=== PATIENT | female | born 1950 | race African-American/Black ===

== ENCOUNTER 2016-07-01 17:26 | Inpatient (IN) ==
[2016-07-01] MEDS ORDERED: FUROSEMIDE 100 MG/10 ML VIAL IV STA (18:47)
[2016-07-01] MEDS ORDERED: methylPREDNISolone SOD SUC 125 MG/2 ML VIAL IV STA (18:47)
--- NOTE | 2016-07-01 18:47 | Emergency Department Note ---
Lyle Dey Brooke, am scribing for, and in the presence of, Julio C Shirley MD 18 :16. Fern Dey Charles R, MD, personally performed the services described in this documentation, ascribed by Maryse Alvarenga in my presence, and it is both accurate and complete [id number] . Arrival - Arrival Chief Complaint: Shortness of Breath Stated Complaint: SOB ED Nursing Triage Note: c/o SOB that started Friday. was seen at [facility] this am and states that Sats were low Mode of Arrival: Ambulatory Limitations: No Limitations Source: Patient, RN Notes Reviewed Time Seen by Provider: 07/01/16 18:05 - History of Present Illness HPI Narrative: Patient is a 66 year old female who presents to the ED with c/o SOB that started on Friday. Patient went to see a Nurse Practitioner around 1300 today and says she was concerned about her oxygen being low so she was told to come to the ED. Patient says the SOB is worse when laying flat and she says she feels like she is smothering. Patient had two breathing treatments prior to coming to the ED. Patient says she has never experienced SOB, like this, in the past. She also complains of having a cough and sore throat but denies any chest pain or fever. Patient has PMHx of HTN, dyslipidemia, and IDDM. She says Dr. Batista, in [place], told her that she has a 50% blocked artery. She does not have a history of smoking. Patient says she does take Dermadex but has not had any today. Onset (ago): day(s) (4) Allergies/Adverse Reactions: Allergies Allergy/AdvReac Type Severity Reaction Status Date / Time meloxicam [From Mobic] Allergy Unknown/Unable Verified 07/01/16 17:50 to obtain aspirin AdvReac Gastrointestinal Verified 07/01/16 17:50 Upset Home Medications: Home Medications Medication Instructions Recorded Confirmed Type Gabapentin 600 mg PO QPM 07/01/16 07/01/16 History Insulin Aspart [NovoLOG FlexPen] See Protocol SUBCUT QOTHER DAY 07/01/16 History Insulin Detemir [Levemir FlexPen] 50 unit SUBCUT BEDTIME 07/01/16 07/01/16 History Insulin Detemir [Levemir FlexPen] 70 unit SUBCUT QAM 07/01/16 07/01/16 History Isosorbide Mononitrate [Imdur] 30 mg PO DAILY 07/01/16 07/01/16 History Losartan Potassium 100 mg PO DAILY 07/01/16 07/01/16 History Metoprolol Tartrate 100 mg PO DAILY 07/01/16 07/01/16 History Torsemide Tab [Demadex Tab] 20 mg PO QOTHER DAY PRN 07/01/16 07/01/16 History Review of System - Review of System 12 point system: reviewed and no additional remarkable complaints except as stated - Review of System Constitutional: Absent: fever Head/Ears/Nose/Throat: Present: sore throat Respiratory: Present: cough, respiratory distress (SOB) Cardiovascular: Absent: chest pain Skin: Absent: rash Medical,Surgical,& Family Hx - Medical History Cardio: History of: Hypertension Endocrine: History of: Diabetes Mellitus (IDDM), Dyslipidemia - Social History Smoking Status: Never smoker Frequency of Alcohol Use: None Type of Drug Use: None Exam Vital Signs: Vital Signs Temperature 97.8 F 07/01/16 18:23 Pulse Rate 80 07/01/16 19:19 Respiratory Rate 19 07/01/16 19:19 Blood Pressure 110/60 07/01/16 19:03 O2 Sat by Pulse Oximetry 99 07/01/16 19:19 - General General appearance: alert, in distress (respiratory) - Head Head exam: Present: atraumatic, normocephalic - Eye Eye exam: Present: normal appearance, PERRL, EOMI - ENT ENT exam: Present: normal exam - Neck Neck exam: Present: normal inspection - Chest Chest inspection: Present: normal inspection, symmetric chest wall rise - Respiratory Respiratory exam: Present: rales (lower lung brock), wheezes (Upper lung brock ), other (Audible wheezing. Decreased breath sounds. ) - Cardiovascular Cardiovascular exam: Present: normal rhythm, tachycardia, normal heart sounds - Abdominal Exam Abdominal exam: Present: soft. Absent: distention, tenderness - Extremities Exam Extremities exam: Present: pedal edema (+2 bilaterally) - Back Exam Back exam: Present: normal inspection - Neurological Exam Neurological exam: Present: alert, oriented X3 - Psychiatric Psychiatric exam: Present: normal affect, normal mood - Skin Skin exam: Present: warm, dry, intact, normal color Course - Consultations Consultation #1: Hospitalist will admit patient Time: 19:47 Results - Labs CBC & BMP: 07/01/16 18:19 07/01/16 18:19 Lab Results: I have reviewed the patients labs Labs: Laboratory Tests 07/01/16 18:19 Hgb 10.3 L Hct 32.7 L MCV 79.8 L MCH 25 L MCHC 31.5 L MPV 12.7 H Laboratory Tests 07/01/16 18:19 Potassium 3.2 L Chloride 96 L BUN 36 H Creatinine 2.10 H Glucose 113 H Total Protein 8.4 H Globulin 5.0 H Albumin/Globulin Ratio 0.6 L Laboratory Tests 07/01/16 18:19 B-Natriuretic Peptide 20 - Diagnostic Findings Procedure: Chest x-ray: report reviewed by me (COPD with chronic scarring. Progressive atelectasis/infiltration/edema at the lung bases with small left pleural effusion.) Disposition Clinical Impression: Bronchitis, Pleural effusion, Renal insufficiency, Acute dyspnea, Bronchospasm Case discussed with: patient, patient's family Disposition: Still a Patient Condition: Stable Time of Disposition: 19:46
[2016-07-01 18:54] LABS: Basophils % 0.2 % (0.0-0.8); Eosinophils # 0.2 10*3/uL (0.0-0.87); Eosinophils % 2.6 % (0.00-10.9); Hematocrit 32.7 VOL% (35.7-47.0); Hemoglobin 10.3 GM/DL (12.0-16.0); Immature Granulocytes % 0.1 %; Immature Granulocytes Absolute 0.01 #; Lymphocytes # 2.6 10*3/uL (1.4-4.0); Lymphocytes % 29.4 % (21.3-54.2); Mean Corpuscular HGB Conc 31.5 GM/DL (32-36); Mean Corpuscular Hemoglobin 25 PG (27-34); Mean Corpuscular Volume 79.8 FL (87-102); Mean Platelet Volume 12.7 FL (9.6-12.0); Monocytes # 0.6 10*3/uL (0.11-0.8); Monocytes % 6.5 % (1.7-12.7); Neutrophils # 5.5 10*3/uL (1.4-7.4); Neutrophils % 61.2 % (38.7-73.9); Platelet Count 223 T/CUMM (130-400); Red Cell Distribution Width 14.9 % (9.3-17.3)
[2016-07-01] MEDS ORDERED: ONDANSETRON 4 MG/2 ML VIAL ONE ×2 (19:00→21:09)
[2016-07-01] MEDS ORDERED: MORPHINE 2 MG/1 ML SYRINGE ONE (19:00)
[2016-07-01] MEDS ORDERED: FUROSEMIDE 40 MG/4 ML VIAL ONE (19:00)
[2016-07-01] MEDS ORDERED: ALBUTEROL 2.5 MG/3 ML NEB RESP TX SCH (19:00)
[2016-07-01] MEDS ORDERED: methylPREDNISolone SOD SUC 125 MG/2 ML VIAL ONE (19:01)
[2016-07-01] MEDS ORDERED: FUROSEMIDE 20 MG/2 ML VIAL ONE (19:01)
[2016-07-01 19:02] LABS: D-Dimer 1.3 MG/L FEU; INR 1.1; PT Patient Result 11.2 SECS
[2016-07-01] MEDS: MORPHINE 2 MG/1 ML SYRINGE IV STA ×2 (19:04→20:29)
[2016-07-01] MEDS: ONDANSETRON 4 MG/2 ML VIAL IV STA ×2 (19:04→20:29)
[2016-07-01 19:06] LABS: Alanine Aminotransferase 18 U/L (13-56); Albumin 3.4 G/DL (3.4-5.0); Alkaline Phosphatase 100 U/L (45-117); Aspartate Amino Transferase 29 U/L (0-37); Bilirubin,Total < 0.39 MG/DL (0.2-1.0); Blood Urea Nitrogen 36 MG/DL (7-18); Glucose 113 MG/DL (74-106); Magnesium 1.9 MG/DL (1.8-2.4); Osmolality,Calculated 281.8 MOS/KG (273-304); Potassium 3.2 MMOL/L (3.5-5.1); Sodium 137 MMOL/L (136-145); Total Protein 8.4 G/DL (6.4-8.3); Troponin I Only < 0.015 NG/ML (0.00-0.045)
--- NOTE | 2016-07-01 19:12 | XRay Report ---
Portable chest Date:[07/01/2016] Clinical history: Shortness of breath Comparison: 07/01/2016 Technique: Portable AP sitting chest Findings: The heart is borderline in size. The lungs are chronic scarring. Progressive parenchymal findings at the lung bases. Persistent increased density at the left lung base. Degenerative changes are noted. Impression: COPD with chronic scarring. Progressive atelectasis/infiltration/edema at the lung bases with small left pleural effusion. PROCEDURE INTERPRETED AT [facility] DEPARTMENT OF RADIOLOGY Final Report Signed by: Dr. Radha Villegas
[2016-07-01] MEDS ORDERED: SODIUM CHLORIDE 0.9% 500 ML IV STA (19:18)
[2016-07-01] MEDS ORDERED: LEVOFLOXACIN INJ 750 MG in PREMIX 1 EACH IV STA (20:04)
--- NOTE | 2016-07-01 20:12 | Hospitalist History & Physical ---
Assessment and Plan - Time spent with patient Time spent with patient: Greater than 30 minutes (1) Community acquired pneumonia Status: Acute Assessment and plan: Patient be cultured and placed on empiric IV antibiotics, along with oxygen therapy and nebulizer therapy. She has associated wheezing/bronchospasm therefore I will give her IV magnesium also. We'll reevaluate and see how she responds before we add any corticosteroids intravenously. Current Visit: Yes (2) Hypertension Status: Chronic Assessment and plan: Patient has chronic essential hypertension which is well controlled. We'll continue her current medical regimen however we will consider holding her ARB since her creatinine is elevated and we are unclear as to duration of her renal insufficiency. Current Visit: Yes Qualifiers: Hypertension type: essential hypertension Qualified Code(s): I10 - Essential (primary) hypertension (3) Diabetes mellitus Status: Chronic Assessment and plan: We'll continue her current medical regimen as well as Accu-Cheks with sliding scale insulin. Current Visit: Yes Qualifiers: Diabetes mellitus type: type 2 (4) Anemia Status: Chronic Assessment and plan: Patient has an anemia which is hemodynamically stable and no evidence of blood loss. We'll defer evaluation of this time to an outpatient setting. Current Visit: Yes (5) Hypokalemia Status: Acute Assessment and plan: Supplement her potassium tonight and follow-up levels in the a.m. Current Visit: Yes (6) Renal insufficiency Status: Acute Assessment and plan: She has renal insufficiency of unknown duration. We'll attempt to obtain old records, hold her ARB at this time, avoid any further nephrotoxic insults, and follow-up renal function in the a.m. Current Visit: Yes History of Present Illness Chief complaint: short of breath, cough History of present illness: Ms. Chester is a 66 year old female who states that for the past 4-5 days she developed a cough productive of yellow-green phlegm with associated subjective fevers and increasing shortness of breath over the weekend. She did have some sharp chest discomfort associated only with the cough. She made it to the weekend but went to see her primary care provider, Saray Schwartz NP, today and was referred to our emergency department for further evaluation and care. Mrs. Chester denies any nausea, vomiting, diarrhea, constipation, melena, hematochezia , hematemesis, abdominal pain, seizure, syncope, focal motor weakness or paresthesias. She denies any history of COPD or asthma. She states that she has high blood pressure and diabetes mellitus. 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 Home Medications Medication Instructions Recorded Confirmed Type Gabapentin 600 mg PO QPM 07/01/16 07/01/16 History Insulin Aspart [NovoLOG FlexPen] See Protocol SUBCUT QOTHER DAY 07/01/16 History Insulin Detemir [Levemir FlexPen] 50 unit SUBCUT BEDTIME 07/01/16 07/01/16 History Insulin Detemir [Levemir FlexPen] 70 unit SUBCUT QAM 07/01/16 07/01/16 History Isosorbide Mononitrate [Imdur] 30 mg PO DAILY 07/01/16 07/01/16 History Losartan Potassium 100 mg PO DAILY 07/01/16 07/01/16 History Metoprolol Tartrate 100 mg PO DAILY 07/01/16 07/01/16 History Torsemide Tab [Demadex Tab] 20 mg PO QOTHER DAY PRN 07/01/16 07/01/16 History Allergies Allergy/AdvReac Type Severity Reaction Status Date / Time meloxicam [From Mobic] Allergy Unknown/Unable Verified 07/01/16 17:50 to obtain aspirin AdvReac Gastrointestinal Verified 07/01/16 17:50 Upset Medical,Surgical,& Family Hx - Medical History Cardio: History of: Hypertension Endocrine: History of: Diabetes Mellitus (IDDM), Dyslipidemia - Surgical History Reproductive Surgeries: Surgical HX of;: Hysterectomy - Family History Family History: Reports;: Family Heart Disease, Additional Family History ( father of cirrhosis of the liver) - Social History Smoking Status: Never smoker Frequency of Alcohol Use: None Type of Drug Use: None Functional capacity: independent ambulation 12 point system: reviewed and no additional remarkable complaints except as stated Exam - Constitutional Vitals: Period Temp Pulse Resp BP Sys/Lepe Pulse Ox Last 24 Hr 97.8 F-97.8 F 80-100 19-24 110-145/59-78 92-99 General appearance: mild distress - Head Head exam: Present: normocephalic, atraumatic - Eye Eye exam: Present: EOMI Pupils: Present: HEATHER - ENT ENT exam: Present: normal oropharynx - Neck Neck exam: Absent: lymphadenopathy, meningismus, tenderness, thyromegaly - Respiratory Respiratory exam: Present: rales (she has rales in the bases bilaterally), wheezes (scattered end-expiratory wheezes bilaterally). Absent: accessory muscle use, chest wall tenderness - Cardiovascular Cardiovascular exam: Present: regular rate and rhythm. Absent: gallop, JVD, systolic murmur - GI/Abdominal GI/Abdominal exam: Present: normal bowel sounds, soft. Absent: distended, mass , tenderness, rebound - Extremities Exam Extremities exam: Absent: calf tenderness, edema - Back Exam Back exam: Present: normal inspection - Neurological Exam Neurological exam: Present: alert, oriented X3, CN II-XII intact. Absent: motor sensory deficit - Psychiatric Psychiatric exam: Present: normal affect, normal mood. Absent: agitated, anxious - Skin Skin exam: Present: warm, dry. Absent: erythema, rash Results - Labs CBC & BMP: 07/01/16 18:19 07/01/16 18:19 Lab Results: I have reviewed the past 24 hour labs - Diagnostic Findings Procedure: Chest x-ray: report reviewed by me
[2016-07-01] MEDS ORDERED: LEVOFLOXACIN INJ 150 ML IV ONE (20:13)
[2016-07-01] MEDS ORDERED: POTASSIUM CHLORIDE 20 MEQ TABLET PO STA (20:15)
[2016-07-01] MEDS: MAGNESIUM SULF IV SCH ×4 (20:15→23:43)
[2016-07-01] MEDS: SODIUM CHLORIDE 0.9% IV SCH ×4 (20:15→23:43)
[2016-07-01] MEDS ORDERED: POTASSIUM CHLORIDE 20 MEQ TABLET PO ONE (20:30)
[2016-07-01] MEDS ORDERED: ONDANSETRON 4 MG/2 ML VIAL IV ONE (21:09)
[2016-07-01] MEDS ORDERED: ACETAMINOPHEN 325 MG TABLET PO PRN (21:30)
[2016-07-01] MEDS ORDERED: MORPHINE 2 MG/1 ML SYRINGE IV PRN (21:30)
[2016-07-01] MEDS ORDERED: TORSEMIDE 20 MG TABLET PO PRN (21:30)
[2016-07-01] MEDS ORDERED: GLUCAGON 1 MG VIAL IM PRN (21:30)
[2016-07-01] MEDS ORDERED: ALBUTEROL 2.5 MG/3 ML NEB RESP TX PRN (21:30)
[2016-07-01] MEDS ORDERED: DEXTROSE 50% 25 GM/50 ML VIAL IV PRN (21:30)
[2016-07-01] MEDS ORDERED: hydrALAZINE 20 MG/1 ML VIAL IV PRN (21:30)
[2016-07-01] MEDS ORDERED: ONDANSETRON 4 MG/2 ML VIAL IV PRN (21:30)
[2016-07-01] MEDS: ENOXAPARIN 30 MG/0.3 ML SYRINGE SUBCUT SCH (23:47)
[2016-07-01] MEDS: GABAPENTIN 300 MG CAPSULE PO SCH (23:47)
[2016-07-01] MEDS: INSULIN GLARGINE 100 UNIT/ML SUBCUT SCH (23:53)
[2016-07-01] MEDS: INSULIN LISPRO 100 UNIT/ML SUBCUT SCH (23:54)
[2016-07-02] MEDS: ALBUTEROL 2.5 MG/3 ML NEB RESP TX SCH ×4 (00:08→20:04)
[2016-07-02] MEDS: MAGNESIUM SULF IV SCH ×2 (00:43→01:37)
[2016-07-02] MEDS: SODIUM CHLORIDE 0.9% IV SCH ×2 (00:43→01:37)
[2016-07-02 05:56] LABS: Basophils % 0.1 % (0.0-0.8); Hematocrit 29.9 VOL% (35.7-47.0); Hemoglobin 9.3 GM/DL (12.0-16.0); Immature Granulocytes % 0.2 %; Immature Granulocytes Absolute 0.02 #; Lymphocytes # 0.8 10*3/uL (1.4-4.0); Lymphocytes % 10.1 % (21.3-54.2); Mean Corpuscular HGB Conc 31.1 GM/DL (32-36); Mean Corpuscular Hemoglobin 25 PG (27-34); Mean Corpuscular Volume 79.7 FL (87-102); Mean Platelet Volume 12.5 FL (9.6-12.0); Monocytes % 0.5 % (1.7-12.7); Neutrophils # 7.3 10*3/uL (1.4-7.4); Neutrophils % 89.1 % (38.7-73.9); Platelet Count 192 T/CUMM (130-400); Red Blood Count 3.75 MC/CUMM (3.8-5.5); White Blood Count 8.2 T/CUMM (4-12)
[2016-07-02 06:30] LABS: Calcium 8.7 MG/DL (8.5-10.1); Osmolality,Calculated 293.1 MOS/KG (273-304); Potassium 3.6 MMOL/L (3.5-5.1)
[2016-07-02] MEDS ORDERED: METOPROLOL TARTRATE 100 MG TABLET PO SCH (09:00)
--- NOTE | 2016-07-02 09:10 | Hospitalist Progress Note ---
Assessment and Plan (1) Obstructive sleep apnea Status: Chronic Assessment and plan: On active treatment for 6 months Current Visit: Yes (2) Acute dyspnea Status: Acute Assessment and plan: Unclear whether is chronic lung disease with viral URI or element of pneumonitis Current Visit: Yes (3) Diabetes mellitus Status: Chronic Current Visit: Yes Qualifiers: Diabetes mellitus type: type 2 Hospitalist: Subjective Interval history: 66 yo female diabetes, hypertension on active treatment for LAINE for about 6 months, presents with dyspnea and cough. Had essentially negative CCA done at the end of last year in [place]. Feels better this morning. Some pre-renal changes with diuresis yesterday. CXR poor quality and looks like basal hypoventilation with chronic fibrosis. Exam - Constitutional Vitals: Period Temp Pulse Resp BP Sys/Lepe Pulse Ox Last 24 Hr 97.7 F-98 F 80-106 20-26 106-156/60-75 95-99 General appearance: over weight - Respiratory Respiratory exam: Present: wheezes. 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 Absent: organomegaly, tenderness - Extremities Exam Extremities exam: Absent: edema - Neurological Exam Neurological exam: Present: alert, oriented X3 Results - Labs CBC & BMP: 07/02/16 05:28 07/02/16 05:28 Quality Measures - Stroke Symptom Onset Unknown: No
[2016-07-02] MEDS: INSULIN LISPRO 100 UNIT/ML SUBCUT SCH ×4 (10:15→22:40)
[2016-07-02] MEDS: INSULIN GLARGINE 100 UNIT/ML SUBCUT SCH ×2 (10:15→22:36)
[2016-07-02] MEDS: ISOSORBIDE MONONITRATE 30 MG TABLET PO SCH (10:16)
[2016-07-02] MEDS: GABAPENTIN 300 MG CAPSULE PO SCH (22:36)
[2016-07-02] MEDS: ENOXAPARIN 30 MG/0.3 ML SYRINGE SUBCUT SCH (22:41)
[2016-07-03] MEDS: ALBUTEROL 2.5 MG/3 ML NEB RESP TX SCH ×4 (01:22→19:57)
[2016-07-03 06:56] LABS: Calcium 8.8 MG/DL (8.5-10.1); Osmolality,Calculated 294.3 MOS/KG (273-304); Potassium 3.3 MMOL/L (3.5-5.1)
--- NOTE | 2016-07-03 07:25 | Hospitalist Progress Note ---
Assessment and Plan (1) Obstructive sleep apnea Status: Chronic Assessment and plan: On active treatment for 6 months Current Visit: Yes (2) Acute dyspnea Status: Acute Assessment and plan: Unclear whether is chronic lung disease with viral URI or element of pneumonitis Current Visit: Yes (3) Diabetes mellitus Status: Chronic Current Visit: Yes Qualifiers: Diabetes mellitus type: type 2 Hospitalist: Subjective Interval history: 66 yo female admitted with dyspnea and bronchospasm. URI symptoms with recent introduction of therapy for LAINE. She has progressed well but had recurrence of rapid regular atrial rhythm which appears asymptomatic. He does not recall any mention of tachycardia on prior evaluations. CBG has improved and pre-renal changes resolving. Exam - Constitutional Vitals: Period Temp Pulse Resp BP Sys/Lepe Pulse Ox Last 24 Hr 97.1 F-97.7 F 80-103 18-20 103-130/50-70 90-100 General appearance: over weight - Respiratory Respiratory exam: Present: clear to auscultation bilaterally. Absent: rales, rhonchi, wheezes - Cardiovascular Cardiovascular exam: Present: regular rate and rhythm - Extremities Exam Extremities exam: Absent: edema - Neurological Exam Neurological exam: Present: alert, oriented X3 Results - Labs CBC & BMP: 07/02/16 05:28 07/03/16 05:13 - Impressions Monitor shows rapid regular supraventricular tachycardia last PM Quality Measures - Stroke Symptom Onset Unknown: No
--- NOTE | 2016-07-03 07:59 | EKG Report ---
Stationary ECG Study [facility] Test Date: 07/03/2016 7:58:45 AM Pat Name: LEDY MUÑOZ Department: Room: 228 Gender: F Family Services Manager: : 1950 Requested by: Coy Barrios Order Number: [id number] Reading MD: MYRON SMITH Intervals [place] Rate: 84 P: 61 MI: 152 QRS: 66 QRSD: 137 T: 51 QT: 438 QTc: 480 Interpretive Statements SINUS RHYTHM INDETERMINATE AXIS RIGHT BUNDLE BRANCH BLOCK Electronically Signed On 07-03-16 12:54:21 PASTE MAKER by MYRON SMITH [email or web address]
[2016-07-03] MEDS: INSULIN LISPRO 100 UNIT/ML SUBCUT SCH ×4 (08:54→22:10)
[2016-07-03] MEDS: POTASSIUM CHLORIDE 20 MEQ TABLET PO SCH ×3 (08:57→22:07)
[2016-07-03] MEDS ORDERED: METOPROLOL TARTRATE 100 MG TABLET PO SCH (09:00)
[2016-07-03] MEDS ORDERED: ASPIRIN EC 81 MG TABLET PO SCH (09:00)
--- NOTE | 2016-07-03 09:23 | Electrophysiology Consultation ---
History of Present Illness - Data of Consult Patient: new to practice Consult date: 07/03/16 Requesting Physician: Vince Coyle - Consult Narrative Reason for consult: PAT History of present illness: Ms. Chester is a 66 year old BF, followed by dr. Batista in [place]. She has a history of COPD, hypertension, morbid obesity, type 2 diabetes mellitus, CAD, HLP, LAINE on CPAP, CKD. She was admitted with worsening shortness of breath, orthopnea. She noticed palpitations approximately a year ago, more when she is walking. They usually last for several minutes, sometimes shorter. These happen multiple times a day. She also had some intermittent chest discomfort with this. She underwent cardiac catheterization by Dr. Batista, in [place],and was diagnosed with CAD. Medical management was pursued and she was started on Imdur. This did not decrease the amount of her palpitations. She denies any syncope, she has a mild chronic lower extremity swelling. She has orthopnea. She uses CPAP for obstructive sleep apnea, she is compliant with her medications. She has a history of aspirin intolerance. EKG shows sinus rhythm, right bundle branch block, 84 beats per minutes. Review of telemetry shows runs of monomorphic paroxysmal atrial tachycardia, lasting for several seconds each. Quite frequent episodes. She is hypokalemic, creat around 2. Mg is high. She was on prn torsemide before. CC: Vince Coyle MD - Home Medications and Allergies Home Medications: Home Medications Medication Instructions Recorded Confirmed Type Gabapentin 600 mg PO QPM 07/01/16 07/01/16 History Insulin Aspart [NovoLOG FlexPen] See Protocol SUBCUT QOTHER DAY 07/01/16 History Insulin Detemir [Levemir FlexPen] 50 unit SUBCUT BEDTIME 07/01/16 07/01/16 History Insulin Detemir [Levemir FlexPen] 70 unit SUBCUT QAM 07/01/16 07/01/16 History Isosorbide Mononitrate [Imdur] 30 mg PO DAILY 07/01/16 07/01/16 History Losartan Potassium 100 mg PO DAILY 07/01/16 07/01/16 History Metoprolol Tartrate 100 mg PO DAILY 07/01/16 07/01/16 History Torsemide Tab [Demadex Tab] 20 mg PO QOTHER DAY PRN 07/01/16 07/01/16 History Allergies/Adverse Reactions: Allergies Allergy/AdvReac Type Severity Reaction Status Date / Time meloxicam [From Mobic] Allergy Unknown/Unable Verified 07/01/16 17:50 to obtain aspirin AdvReac Gastrointestinal Verified 07/01/16 17:50 Upset Medical,Surgical,& Family Hx - Medical History Cardio: History of: Hypertension HEENT: History of: Eye Problem (cateract surgery) Endocrine: History of: Diabetes Mellitus (IDDM), Diabetes Mellitus (NIDDM), Dyslipidemia Rheumatology: Comment Only: Rheumatoid Arthritis (age related arthritis) Respiratory: History of: Obstructive Sleep Apnea (has cpap machine) Gastrointestinal: History of: GERD, Hemorrhoids Hematology: History of: Anemia No history of: Blood Transfusion Reaction - Surgical History Cardiac Surgeries: Sugical HX of: Cardiac Catheterization (2016) Thoracic Surgeries: Patient denies;: Organ Transplant HEENT Surgeries: Surgical HX of: Eye Surgery Patient denies: Tonsilectomy & Adenoidectomy Reproductive Surgeries: Surgical HX of;: Hysterectomy - Family History Family History: Reports;: Family Heart Disease, Additional Family History ( father of cirrhosis of the liver) - Social History Smoking Status: Never smoker Frequency of Alcohol Use: None Type of Drug Use: None 12 point system: reviewed and no additional remarkable complaints except as stated Exam - Constitutional Vitals: Period Temp Pulse Resp BP Sys/Lepe Pulse Ox Last 24 Hr 96.8 F-97.6 F 80-97 18-22 82-130/50-70 90-100 General appearance: morbidly obese - Head Head exam: Present: normal inspection - Eye Eye exam: Absent: conjunctival injection Pupils: Absent: dilated - ENT ENT exam: Present: normal external ear exam - Neck Neck exam: Present: normal inspection - Respiratory Respiratory exam: Present: decreased breath sounds - Cardiovascular Cardiovascular exam: Present: regular rate and rhythm, systolic murmur - GI/Abdominal GI/Abdominal exam: Present: normal bowel sounds - Extremities Exam Extremities exam: Present: normal inspection, normal capillary refill, edema (1+ ) - Back Exam Back exam: Present: normal inspection - Neurological Exam Neurological exam: Present: alert, oriented X3 - Psychiatric Psychiatric exam: Present: normal affect, normal mood - Skin Skin exam: Present: normal color, warm. Absent: cyanosis Results - Labs CBC & BMP: 07/02/16 05:28 07/03/16 05:13 Lab Results: I have reviewed the past 24 hour labs Assessment and Plan (1) PAT (paroxysmal atrial tachycardia) Status: Acute Assessment and plan: 66-year-old black female, admitted with shortness of breath, orthopnea. History of CAD, type 2 diabetes mellitus, paroxysmal atrial tachycardia, hypertension, hyperlipidemia, obstructive sleep apnea on CPAP, CKD. -PAT. continue potassium repletion. Check echo. switch metoprolol to 50 mg twice a day. Add Cardizem 30 mg 3 times a day. If she remains symptomatic despite medical management, EP study/ablation might be pursued. Cont nocturnal CPAP. Obtain records from Dr. Batista's office - office FU, cath, Holter. I suggest to discharge her with an event recorder, once her comorbidities improve , to rule out paroxysmal atrial fibrillation and assess rhythm control with her medication changes. -CAD. Add Pravachol 20 mg daily at bedtime. Check lipid panel. She has a history of aspirin intolerance due to stomach irritation. Continue Imdur. -Orthopnea. This may be due to diastolic CHF. Check BNP. If she has pulmonary hypertension or significant diastolic dysfunction, I would resume diuretics, lower dose Lasix instead of torsemide to avoid exacerbating hypokalemia. -HTN. She was normotensive and most recently, hypotensive. The ARB is on hold. On renal function is stable and her blood pressure improves, suggest to resume low dose ARB. Current Visit: Yes (2) Bronchitis Status: Acute Current Visit: Yes (3) Pleural effusion Status: Acute Current Visit: Yes (4) Renal insufficiency Status: Acute Current Visit: Yes (5) Hypertension Status: Chronic Current Visit: Yes Qualifiers: Hypertension type: essential hypertension Qualified Code(s): I10 - Essential (primary) hypertension (6) Diabetes mellitus Status: Chronic Current Visit: Yes Qualifiers: Diabetes mellitus type: type 2 (7) Hypokalemia Status: Acute Current Visit: Yes (8) Obstructive sleep apnea Status: Chronic Current Visit: Yes Quality Measures - Stroke Symptom Onset Unknown: No
[2016-07-03] MEDS: INSULIN GLARGINE 100 UNIT/ML SUBCUT SCH ×2 (09:40→22:10)
[2016-07-03] MEDS: LEVOFLOXACIN INJ 750 MG in PREMIX 1 EACH IV SCH (09:44)
[2016-07-03] MEDS: METOPROLOL TARTRATE 50 MG TABLET PO SCH ×2 (10:30→22:09)
[2016-07-03] MEDS: DILTIAZEM 30 MG TABLET PO SCH ×3 (11:49→22:08)
--- NOTE | 2016-07-03 12:29 | ECHO Report ---
Maco Chester 07/03/2016 Exam Date: 09:22 Referring Physician: Elisabeth Villeda Technologist: GASTON Age: 66 Ht (in): Wt (lb): FExam [facility] Gender: Echo [id number]: Chest pain, unspecified, Paroxysmal Indications:achycardia, unspecified, Morbid (severe) obesity due to excess calories, Chronic kidney disease, unspecified, Dyspnea, unspecified, Orthopnea, IDDM, LAINE, Essential (primary) hypertension, Pleural effusion, not elsewhere classified, Bronchitis BP: / HR: SinusRhythm: Technical Quality: IMPRESSIONS Normal left ventricular cavity size. Mild concentric left ventricular hypertrophy. The systolic function is hyperdynamic. Left ventricular ejection fraction is estimated at 70 %. Grade 2 diastolic dysfunction. Mild biatrial enlargement. Mild pulmonary hypertension. MEASUREMENTS (Male / Female) Normal Values 2D ECHO LV Diastolic Diameter PLAX 3.9 cm 4.2 - 5.9 / 3.9 - 5.3 cm LV Systolic Diameter PLAX 1.9 cm LV Fractional Shortening PLAX 50.9 % IVS Diastolic Thickness 1.4 cm 0.6 - 1.0 / 0.6 - 0.9 cm LVPW Diastolic Thickness 1.5 cm 0.6 - 1.0 / 0.6 - 0.9 cm RV Internal Dim ED PLAX 2.9 cm Aortic Root Diameter 2.7 cm LA Systolic Diameter LX 3.9 cm 3.0 - 4.0 / 2.7 - 3.8 cm DOPPLER TR Peak Velocity 295.0 cm/s TR Peak Gradient 34.8 mmHg FINDINGS Left Ventricle Normal left ventricular cavity size. Mild concentric left ventricular hypertrophy. The systolic function is hyperdynamic. Left ventricular ejection fraction is estimated at 70 %. Grade 2 diastolic dysfunction. Right Ventricle The right ventricle is normal in size and function. Right Atrium The right atrium is mildly enlarged. Left Atrium Mild left atrial enlargement. Mitral Valve Morphologically normal mitral valve. Trace mitral valve regurgitation. Aortic Valve Structurally normal aortic valve, without stenosis or insufficiency. Tricuspid Valve Morphologically normal tricuspid valve. Mild tricuspid valve regurgitation. Tricuspid regurgitation velocities suggest a PAP of 35 mmHg + RA pressure. Pulmonic Valve Morphologically normal pulmonic valve without significant stenosis. There is no pulmonic regurgitation. Pericardium Normal pericardium without effusion. Aorta Normal ascending aorta dimension. Coy Barrios (Electronically Signed) 03 July 2016 Final Date: 11:17
[2016-07-03] MEDS: ISOSORBIDE MONONITRATE 30 MG TABLET PO SCH (14:37)
[2016-07-03] MEDS: GABAPENTIN 300 MG CAPSULE PO SCH (22:08)
[2016-07-03] MEDS: PRAVASTATIN 20 MG TABLET PO SCH (22:09)
[2016-07-03] MEDS: ENOXAPARIN 40 MG/0.4 ML SYRINGE SUBCUT SCH (22:13)
[2016-07-04] MEDS: ALBUTEROL 2.5 MG/3 ML NEB RESP TX SCH ×4 (01:38→19:44)
[2016-07-04 07:18] LABS: Calcium 9.1 MG/DL (8.5-10.1); Osmolality,Calculated 288.3 MOS/KG (273-304); Potassium 4.2 MMOL/L (3.5-5.1)
[2016-07-04 07:23] LABS: Risk Ratio 3.88; VLDL CHOLESTEROL 24.8 MG/DL
[2016-07-04 07:27] LABS: Free T4 (Free Thyroxine) 1.49 NG/DL (0.76-1.46); Thyroid Stimulating Hormone 1.65 uIU/ml (0.358-3.74)
--- NOTE | 2016-07-04 07:55 | Electrophysiology Progress Not ---
Assessment and Plan (1) PAT (paroxysmal atrial tachycardia) Status: Acute Assessment and plan: 66-year-old black female, admitted with shortness of breath, orthopnea. History of CAD, type 2 diabetes mellitus, paroxysmal atrial tachycardia, hypertension, hyperlipidemia, obstructive sleep apnea on CPAP, CKD. -PAT. continue to monitor and replete electrolytes. Continue metoprolol 50 mg twice a day, Cardizem 30 mg 3 times a day. Do not hold these medications, unless she has symptomatic hypotension -HTN heart disease. Normal ejection fraction on echo, she has diastolic dysfunction. Once her acute kidney injury, dehydration resolves, low-dose diuretic may be needed. I would avoid torsemide in her case. Once renal function stable, we can start low dose ACEI -CAD. Statin was started. LDL 106. History of aspirin intolerance. Continue Imdur. The daughter will get the contact information for her engineering agent in [place], we need to obtain and review her ischemic evaluation. If the arrhythmia remains difficult to control, flecainide may be an option, unless she has significant CAD. -cont CPAP qhs for LAINE Current Visit: Yes (2) Bronchitis Status: Acute Current Visit: Yes (3) Pleural effusion Status: Acute Current Visit: Yes (4) Renal insufficiency Status: Acute Current Visit: Yes (5) Hypertension Status: Chronic Current Visit: Yes Qualifiers: Hypertension type: essential hypertension Qualified Code(s): I10 - Essential (primary) hypertension (6) Diabetes mellitus Status: Chronic Current Visit: Yes Qualifiers: Diabetes mellitus type: type 2 (7) Hypokalemia Status: Acute Current Visit: Yes (8) Obstructive sleep apnea Status: Chronic Current Visit: Yes Electrophysiology Subjective Interval history: She still had some palpitations last time. Telemetry few runs of paroxysmal atrial tachycardia. The metoprolol was held yesterday a.m., due to hypotension. The renal function is improving. She still has poor appetite. Exam - Constitutional Vitals: Period Temp Pulse Resp BP Sys/Lepe Pulse Ox Last 24 Hr 96.8 F-98.3 F 73-136 18-25 82-143/54-68 90-100 General appearance: morbidly obese - Head Head exam: Present: normal inspection - Eye Eye exam: Absent: conjunctival injection Pupils: Absent: dilated - ENT ENT exam: Present: normal external ear exam - Neck Neck exam: Present: normal inspection - Respiratory Respiratory exam: Present: clear to auscultation bilaterally - Cardiovascular Cardiovascular exam: Present: regular rate and rhythm - GI/Abdominal GI/Abdominal exam: Present: normal bowel sounds - Extremities Exam Extremities exam: Present: normal inspection, normal capillary refill. Absent: edema - Back Exam Back exam: Present: normal inspection - Neurological Exam Neurological exam: Present: alert, oriented X3 - Psychiatric Psychiatric exam: Present: normal affect, normal mood - Skin Skin exam: Present: normal color, warm. Absent: cyanosis Results - Labs CBC & BMP: 07/02/16 05:28 07/04/16 06:01 Lab Results: I have reviewed the past 24 hour labs Quality Measures - Stroke Symptom Onset Unknown: No
--- NOTE | 2016-07-04 08:28 | Hospitalist Progress Note ---
Assessment and Plan (1) Obstructive sleep apnea Status: Chronic Assessment and plan: On active treatment for 6 months Current Visit: Yes (2) Acute dyspnea Status: Acute Assessment and plan: Unclear whether is chronic lung disease with viral URI or element of pneumonitis Current Visit: Yes (3) Diabetes mellitus Status: Chronic Current Visit: Yes Qualifiers: Diabetes mellitus type: type 2 Hospitalist: Subjective Interval history: 66 yo female admitted with wheezing and dyspnea with prodrome of URI symptoms. Initial CXR limited, but initially appeared to be viral in origin. While on monitor demonstrated recurrent episodes of SVT ( last episode 14:30 yesterday) being evaluated by EPS (echocardiogram normal EF and RVSP). Seems to be better this AM with good clearing of lung exam. Will repeat CXR upright to reassess. History of LAINE on therapy for only 6 months, pre-renal changes continue to resolve with hospitalization. One blood culture has returned with GPC with identification pending. Exam - Constitutional Vitals: Period Temp Pulse Resp BP Sys/Lepe Pulse Ox Last 24 Hr 96.9 F-98.3 F 73-136 18-25 97-143/54-68 90-100 General appearance: over weight - Respiratory Respiratory exam: Present: clear to auscultation bilaterally. Absent: rales, rhonchi, wheezes - Cardiovascular Cardiovascular exam: Present: regular rate and rhythm - Extremities Exam Extremities exam: Absent: edema - Neurological Exam Neurological exam: Present: alert, oriented X3 Results - Labs CBC & BMP: 07/02/16 05:28 07/04/16 06:01 Labs: free T4 1.49 TSH 1.65 Quality Measures - Stroke Symptom Onset Unknown: No
[2016-07-04] MEDS: INSULIN GLARGINE 100 UNIT/ML SUBCUT SCH ×2 (08:57→20:54)
[2016-07-04] MEDS: DILTIAZEM 30 MG TABLET PO SCH ×3 (08:58→20:58)
[2016-07-04] MEDS: METOPROLOL TARTRATE 50 MG TABLET PO SCH ×2 (08:58→20:53)
[2016-07-04] MEDS: INSULIN LISPRO 100 UNIT/ML SUBCUT SCH ×4 (08:59→20:59)
[2016-07-04] MEDS: ISOSORBIDE MONONITRATE 30 MG TABLET PO SCH (08:59)
--- NOTE | 2016-07-04 13:41 | XRay Report ---
XR chest 2V Date: 07/04/2016 8:17 AM History: Shortness of breath Comparison: 07/01/2016 Technique: PA and lateral chest Findings: The heart is smaller in size with reduced parenchymal findings at the lung bases. Smaller left pleural effusion with stable mediastinum. Degenerative changes are noted. Impression: COPD with chronic scarring. Decreased atelectasis/infiltration/edema at the lung bases with resolved small left pleural effusion. PROCEDURE INTERPRETED AT [facility] DEPARTMENT OF RADIOLOGY Final Report Signed by: Dr. Radha Villegas
[2016-07-04] MEDS: ENOXAPARIN 40 MG/0.4 ML SYRINGE SUBCUT SCH (20:54)
[2016-07-04] MEDS: PRAVASTATIN 20 MG TABLET PO SCH (20:54)
[2016-07-04] MEDS ORDERED: GABAPENTIN 300 MG CAPSULE PO SCH (21:00)
[2016-07-05] MEDS: ALBUTEROL 2.5 MG/3 ML NEB RESP TX SCH ×3 (00:15→13:33)
[2016-07-05] MEDS: INSULIN LISPRO 100 UNIT/ML SUBCUT SCH ×2 (06:44→13:13)
--- NOTE | 2016-07-05 08:03 | Electrophysiology Progress Not ---
Assessment and Plan (1) PAT (paroxysmal atrial tachycardia) Status: Acute Assessment and plan: 66-year-old black female, admitted with shortness of breath, orthopnea. History of CAD, type 2 diabetes mellitus, paroxysmal atrial tachycardia, hypertension, hyperlipidemia, obstructive sleep apnea on CPAP, CKD. -PAT. Good response to BB+CCB. Switch cardizem to CD 120 mg qd -HTN heart disease. Normal ejection fraction on echo, she has diastolic dysfunction. No edema. Hold off diuretics for now - may need it later if edema recurs. Once renal function stable, we can start low dose ACEI. -CAD. Statin was started. LDL 106. History of aspirin intolerance. Continue Imdur. CAD, would hold of AA unless PAT refractory to BB+CCB -FU with cardiology in 2 weeks Current Visit: Yes (2) Bronchitis Status: Acute Current Visit: Yes (3) Pleural effusion Status: Acute Current Visit: Yes (4) Renal insufficiency Status: Acute Current Visit: Yes (5) Hypertension Status: Chronic Current Visit: Yes Qualifiers: Hypertension type: essential hypertension Qualified Code(s): I10 - Essential (primary) hypertension (6) Diabetes mellitus Status: Chronic Current Visit: Yes Qualifiers: Diabetes mellitus type: type 2 (7) Hypokalemia Status: Acute Current Visit: Yes (8) Obstructive sleep apnea Status: Chronic Current Visit: Yes Electrophysiology Subjective Interval history: Feels better. No recurrence of PAT on telemetry. Exam - Constitutional Vitals: Period Temp Pulse Resp BP Sys/Lepe Pulse Ox Last 24 Hr 97.5 F-98.1 F 74-90 18-22 109-128/54-78 96-100 General appearance: morbidly obese - Head Head exam: Present: normal inspection - Eye Eye exam: Absent: conjunctival injection Pupils: Absent: dilated - ENT ENT exam: Present: normal external ear exam - Neck Neck exam: Present: normal inspection - Respiratory Respiratory exam: Present: clear to auscultation bilaterally - Cardiovascular Cardiovascular exam: Present: regular rate and rhythm - GI/Abdominal GI/Abdominal exam: Present: normal bowel sounds - Extremities Exam Extremities exam: Present: normal inspection, normal capillary refill. Absent: edema - Back Exam Back exam: Present: normal inspection - Neurological Exam Neurological exam: Present: alert, oriented X3 - Psychiatric Psychiatric exam: Present: normal affect, normal mood - Skin Skin exam: Present: normal color, warm. Absent: cyanosis Results - Labs CBC & BMP: 07/02/16 05:28 07/04/16 06:01 Lab Results: I have reviewed the past 24 hour labs Quality Measures - Stroke Symptom Onset Unknown: No Specialty Discharge - Follow Up or Referrals - Speciality Discharge Instructions Cardiology Instructions: FU with cardiology in 2 weeks
[2016-07-05] MEDS ORDERED: DILTIAZEM CD 120 MG CAPSULE PO SCH (09:00)
[2016-07-05] MEDS: METOPROLOL TARTRATE 50 MG TABLET PO SCH (09:45)
[2016-07-05] MEDS: ISOSORBIDE MONONITRATE 30 MG TABLET PO SCH (09:46)
[2016-07-05] MEDS: INSULIN GLARGINE 100 UNIT/ML SUBCUT SCH (09:47)
[2016-07-05] MEDS: LEVOFLOXACIN INJ 750 MG in PREMIX 1 EACH IV SCH (09:48)
--- NOTE | 2016-07-05 10:48 | Discharge Summary ---
<Marissa Centeno - Last Filed: 07/05/16 10:43> Hospital Course - Hospital Course Hospital Course: Ms. Chester was admitted on 07/01 with community acquired pneumonia, HTN, DM, chronic anemia, hypokalemia and an element of EDENILSON. Her creatinine on admit was 2.1, and this has improved to her baseline at 1.6. Dr. Barrios was consulted for paroxysmal atrial tach. She is typically followed by Dr. Batista in [place]. She did have hypomagnesemia and this was repleted. Dr. Barrios continued Metoprolol 50 mg PO BID, Cardizem 30 mg TID. She was also started on a statin for CAD. She cannot tolerate ASA. Her echo showed grade 2 diastolic dysfunction with an EF of 70%. She also has a hx of LAINE and is compliant with CPAP. Her vitals and labs are stable to improved and she is ready for discharge home today on appropriate medications and follow up. - Time spent with patient Time with patient DS: Greater than 30 minutes (due to plan, doc and med rec.) Diagnosis - Discharge Diagnosis (1) EDENILSON (acute kidney injury) Status: Acute (2) Community acquired pneumonia Status: Acute (3) Hypokalemia Status: Acute (4) PAT (paroxysmal atrial tachycardia) Status: Acute (5) Anemia Status: Chronic (6) Diabetes mellitus Status: Chronic (7) Hypertension Status: Chronic (8) Obstructive sleep apnea Status: Chronic Discharge Plan - Discharge Data Disposition: Disch To Home/Self Care - Discharge Medications New Diltiazem Cd Cap [Cardizem CD] 120 mg PO DAILY #30 capsule Pravastatin [Pravachol] 20 mg PO BEDTIME #30 tablet Levofloxacin Tab [Levaquin Tab] 500 mg PO DAILY #10 tablet Continue Torsemide Tab [Demadex Tab] 20 mg PO QOTHER DAY PRN PRN Reason: fluid retention Metoprolol Tartrate 100 mg PO DAILY Isosorbide Mononitrate [Imdur] 30 mg PO DAILY Insulin Detemir [Levemir FlexPen] 50 unit SUBCUT BEDTIME Insulin Aspart [NovoLOG FlexPen] See Protocol SUBCUT QOTHER DAY Gabapentin 600 mg PO QPM Losartan Potassium 100 mg PO DAILY Insulin Detemir [Levemir FlexPen] 70 unit SUBCUT QAM - Follow Up or Referral - Forms/Instructions Exam - Constitutional Vitals: Period Temp Pulse Resp BP Sys/Lepe Pulse Ox Last 24 Hr 97.5 F-98.2 F 74-90 18-22 109-128/54-78 95-100 Discharge Results Labs on day of discharge: Labs from last 24 hours 07/05/16 07/05/16 07/05/16 10:52 08:25 06:44 POC Glucose 159 H 119 H 68 L 07/04/16 07/04/16 07/04/16 19:33 17:23 15:50 POC Glucose 155 H 101 68 L Preliminary micro results at discharge 07/02/16 05:28 Blood Culture - Preliminary Blood No growth at 3 days DS: Provider Date of admission: 07/01/16 20:04 Primary care physician: . No PCP Attending physician on admission: Vince Coyle MD Consults: 07/01/16 21:39 Consult to Pharmacy [CONS] Routine Reason for Pharmacy Consult: Adjust Meds Renal Funct 07/01/16 22:02 Consult to Pastoral Services [CONS] Routine Comment: Pastoral Screen: Request Drier Visit Pastoral Screen Source of Request: Patient 07/03/16 07:17 Consult to Physician [CONS] Routine Comment: Atrial tachycardia Consulting Provider: Coy Barrios Person Notified: DANICA Date Notified: 07/03/16 Time Notified: 08:08 Discharging clinician: Marissa Centeno NP Expected date of discharge: 07/05/16 <Thomas Mata Jr. - Last Filed: 07/05/16 12:52> Hospital Course - Hospital Course Hospital Course: The patient continues to do very well. She's had no fevers or chills. Follow- up chest x-ray shows some scarring issues. At this time we'll discharge patient with Levaquin 500 mg by mouth daily for the next 10 days. Diagnosis - Discharge Diagnosis (1) Bronchitis Status: Chronic (2) Pleural effusion Status: Resolved (3) Renal insufficiency Status: Chronic (4) Bronchospasm Status: Chronic (5) Community acquired pneumonia Status: Acute (6) Hypertension Status: Chronic (7) Diabetes mellitus Status: Chronic Discharge Plan - Discharge Data Condition at Discharge: Stable Discharge Diet: advance to your usual diet - Forms/Instructions Additional Discharge Instructions: Follow-up with primary provider in [place] that is Dr. Stormy Batista in the next week.in one week. Exam - Constitutional General appearance: over weight - Head Head exam: Present: normal inspection - Respiratory Respiratory exam: Present: clear to auscultation bilaterally - Cardiovascular Cardiovascular exam: Present: regular rate and rhythm - GI/Abdominal GI/Abdominal exam: Present: normal bowel sounds - Neurological Exam Neurological exam: Present: alert, oriented X3 - Skin Skin exam: Present: normal color
[2016-07-05 13:17] VITALS: BP 139/67
--- NOTE | 2016-07-11 16:28 | Physician Query Form ---
CLICK EDIT DOCUMENT TO SELECT QUERY ANSWER --> OK --> SIGN Toma Burgos RN Clinical Configuration Specialist W) [phone] (f) [phone] [email or web address] PROVIDERS: Make your selection(s) from the choices in EACH section by typing an "x" and enter comments in the comment section. Please use your independent medical judgment in providing your response. This request does not imply that any particular answer is desired or expected. CLINICAL INDICATORS: (Providers should not edit this section) Based on documentation of "Shortness of breath" "Shortness of breath worse when laying flat. Feels like she is smothering" "Pleural Effusion" BNP of 20. Echo shows Diastolic dysfunction. Chest Xray shows edema initially then the repeat show improvement. Treated with IV Lasix. Please provide further specificity regarding CHF. ACUITY: ( ) Acute ( ) Chronic ( ) Acute on Chronic ( ) Clinicallly unable to determine TYPE: ( ) Systolic ( ) Diastolic ( ) Combined Systolic/Diastolic ( ) Other, please specify: ( ) Clinically unable to determine ( x) The patient does NOT have CHF COMMENTS: Use of terms such as suspected, likely, or probable (associated with a specific diagnosis that is being evaluated, monitored, or treated as if it exists) are acceptable and can be restated in the discharge summary if not ruled out. MTDD
== END 2016-07-05 15:12 | disposition home or self-care (01) | DRG 190 ==
LOC: N.ED 17:26 → N.EDINP 20:04 → N.2E 20:44
PROVIDERS: ADMIT Internal Medicine Cardiovascular Disease; ATTEND Internal Medicine Cardiovascular Disease

== ENCOUNTER 2018-07-31 12:13 | Observation (INO) ==
[2018-07-31 12:48] LABS: Basophils % 0.2 % (0.0-0.8); Eosinophils # 0.3 10*3/uL (0.0-0.87); Eosinophils % 3.4 % (0.00-10.9); Hematocrit 35.2 VOL% (35.7-47.0); Hemoglobin 10.9 GM/DL (12.0-16.0); Immature Granulocytes % 0.5 %; Immature Granulocytes Absolute 0.04 #; Lymphocytes # 2.5 10*3/uL (1.4-4.0); Mean Corpuscular Hemoglobin 26 PG (27-34); Mean Platelet Volume 12.1 FL (9.6-12.0); Monocytes # 0.5 10*3/uL (0.11-0.8); Monocytes % 5.7 % (1.7-12.7); Neutrophils # 5.2 10*3/uL (1.4-7.4); Neutrophils % 61.2 % (38.7-73.9); Platelet Count 220 T/CUMM (130-400); Red Blood Count 4.14 MC/CUMM (3.8-5.5); Red Cell Distribution Width 14.2 % (9.3-17.3); White Blood Count 8.6 T/CUMM (4-12)
[2018-07-31 13:15] LABS: Albumin 3.4 G/DL (3.4-5.0); Bilirubin,Total 0.4 MG/DL (0.2-1.0); Calcium 9.2 MG/DL (8.5-10.1); Osmolality,Calculated 278.7 MOS/KG (273-304); Potassium 3.6 MMOL/L (3.5-5.1); Total Protein 8.4 G/DL (6.4-8.3)
[2018-07-31] MEDS ORDERED: ONDANSETRON 4 MG/2 ML VIAL IV STA (14:09)
[2018-07-31] MEDS ORDERED: NITROGLYCERIN 2% OINT 1 INCH/GM PACK TOP STA (14:09)
[2018-07-31] MEDS ORDERED: MORPHINE 4 MG/1 ML VIAL IV STA (14:09)
[2018-07-31] MEDS ORDERED: ALUM/MAG/SIMETH/LIDO VISC 1:1 30 ML BOTTLE PO STA (14:09)
[2018-07-31] MEDS ORDERED: ZALEPLON 5 MG CAPSULE PO PRN (14:36)
[2018-07-31] MEDS ORDERED: ONDANSETRON 4 MG/2 ML VIAL IV PRN (14:36)
[2018-07-31] MEDS ORDERED: BISACODYL 5 MG TABLET PO PRN (14:36)
[2018-07-31] MEDS ORDERED: MAGNESIUM SULF RIDER 4 GM in PREMIX 1 EACH IV PRN (14:36)
[2018-07-31] MEDS ORDERED: ACETAMINOPHEN 325 MG TABLET PO PRN (14:36)
[2018-07-31] MEDS ORDERED: MAGNESIUM HYDROXIDE SUSP 30 ML UDCUP PO PRN (14:36)
[2018-07-31] MEDS ORDERED: MAGNESIUM SULF RIDER 2 GM in PREMIX 1 EACH IV PRN (14:36)
[2018-07-31] MEDS ORDERED: POTASSIUM CHLORIDE 20 MEQ TABLET PO PRN ×2 (14:36)
[2018-07-31] MEDS ORDERED: NITROGLYCERIN SL 0.4 MG TABLET SL PRN (14:36)
[2018-07-31] MEDS ORDERED: INSULIN LISPRO 100 UNIT/ML SUBCUT ONE (14:36)
[2018-07-31] MEDS ORDERED: tiZANidine 4 MG TABLET PO PRN (14:44)
[2018-07-31 15:19] LABS: Risk Ratio 3.34; VLDL CHOLESTEROL 31.6 MG/DL
[2018-07-31] MEDS ORDERED: FUROSEMIDE 40 MG/4 ML VIAL IV STA (15:46)
[2018-07-31] MEDS ORDERED: FUROSEMIDE 40 MG/4 ML VIAL IV SCH (16:00)
[2018-07-31] MEDS: POTASSIUM CHLORIDE 20 MEQ TABLET PO SCH ×3 (17:50→23:47)
[2018-07-31] MEDS: HEPARIN 5,000 UNIT/1 ML VIAL SUBCUT SCH ×2 (17:50→22:47)
[2018-07-31] MEDS ORDERED: DEXTROSE 50% 25 GM/50 ML SYRINGE IV PRN (17:50)
[2018-07-31] MEDS: GABAPENTIN 400 MG CAPSULE PO SCH ×2 (17:50→20:30)
[2018-07-31] MEDS ORDERED: GLUCAGON 1 MG VIAL IM PRN (17:50)
[2018-07-31] MEDS: ALBUTEROL/IPRATROPIUM 3 ML NEB RESP TX SCH ×2 (19:35→23:37)
[2018-07-31] MEDS: INSULIN LISPRO 100 UNIT/ML SUBCUT SCH (20:31)
[2018-07-31] MEDS ORDERED: AMITRIPTYLINE 25 MG TABLET PO SCH (21:00)
[2018-07-31] MEDS ORDERED: SIMVASTATIN 10 MG TABLET PO SCH (21:00)
[2018-07-31] MEDS ORDERED: INSULIN GLARGINE 100 UNIT/ML SUBCUT SCH (21:00)
[2018-07-31] MEDS ORDERED: BEPOTASTINE BESILATE BOTH EYES SCH (21:00)
[2018-07-31] MEDS ORDERED: FUROSEMIDE 40 MG/4 ML VIAL IV ONE (22:00)
[2018-08-01] MEDS: ALBUTEROL/IPRATROPIUM 3 ML NEB RESP TX SCH ×2 (03:20→07:07)
[2018-08-01] MEDS: POTASSIUM CHLORIDE 20 MEQ TABLET PO SCH (03:52)
[2018-08-01 04:26] LABS: Basophils % 0.1 % (0.0-0.8); Eosinophils # 0.2 10*3/uL (0.0-0.87); Eosinophils % 3.2 % (0.00-10.9); Hematocrit 32.3 VOL% (35.7-47.0); Hemoglobin 9.9 GM/DL (12.0-16.0); Immature Granulocytes % 0.3 %; Immature Granulocytes Absolute 0.02 #; Lymphocytes # 2.6 10*3/uL (1.4-4.0); Mean Corpuscular HGB Conc 30.7 GM/DL (32-36); Mean Corpuscular Hemoglobin 26 PG (27-34); Mean Corpuscular Volume 83.2 FL (87-102); Monocytes # 0.5 10*3/uL (0.11-0.8); Monocytes % 7.6 % (1.7-12.7); Neutrophils # 3.7 10*3/uL (1.4-7.4); Neutrophils % 52.8 % (38.7-73.9); Platelet Count 214 T/CUMM (130-400); Red Blood Count 3.88 MC/CUMM (3.8-5.5); Red Cell Distribution Width 14.6 % (9.3-17.3); White Blood Count 7.1 T/CUMM (4-12)
[2018-08-01] MEDS ORDERED: SIMVASTATIN 80 MG TABLET PO SCH (07:29)
[2018-08-01 07:52] VITALS: BP 123/81
[2018-08-01] MEDS: INSULIN LISPRO 100 UNIT/ML SUBCUT SCH (08:37)
[2018-08-01] MEDS ORDERED: ASPIRIN EC 81 MG TABLET PO SCH (09:00)
[2018-08-01] MEDS ORDERED: PANTOPRAZOLE 40 MG TABLET PO SCH (09:00)
[2018-08-01] MEDS ORDERED: sitaGLIPtin 100 MG TABLET PO SCH (09:00)
[2018-08-01] MEDS ORDERED: LOSARTAN 50 MG TABLET PO SCH (09:00)
[2018-08-01] MEDS ORDERED: FLUTICASONE 50 MCG NASAL SPRAY 16 GM BOTTLE BOTH NARES SCH (09:00)
[2018-08-01] MEDS ORDERED: ERGOCALCIFEROL 50,000 UNIT CAPSULE PO SCH (09:00)
[2018-08-01] MEDS ORDERED: NON-FORMULARY MEDICATION (Umeclidinium Brm/Vilanterol Tr [Anoro Ellipta] 1 PUFF) INH SCH (09:00)
[2018-08-01] MEDS ORDERED: TORSEMIDE 20 MG TABLET PO SCH (09:00)
[2018-08-01] MEDS ORDERED: METOPROLOL TARTRATE 100 MG TABLET PO SCH ×2 (09:00)
[2018-08-01] MEDS ORDERED: DILTIAZEM CD 120 MG CAPSULE PO SCH (09:00)
[2018-08-01] MEDS ORDERED: ISOSORBIDE MONONITRATE 30 MG TABLET PO SCH (09:00)
[2018-08-01] MEDS: HEPARIN 5,000 UNIT/1 ML VIAL SUBCUT SCH (09:06)
[2018-08-01] MEDS: GABAPENTIN 400 MG CAPSULE PO SCH (09:06)
== END 2018-08-01 10:49 | disposition home or self-care (01) ==
LOC: N.ED 12:13 → N.EDINP 12:13 → N.4E 16:50
PROVIDERS: ADMIT Hospitalist; ATTEND Hospitalist

== ENCOUNTER 2019-06-26 19:04 | Inpatient (IN) ==
[2019-06-26 19:32] LABS: Basophils % 0.3 % (0.0-0.8); Eosinophils # 0.6 10*3/uL (0.0-0.87); Eosinophils % 8.1 % (0.00-10.9); Hematocrit 36.5 VOL% (35.7-47.0); Hemoglobin 11.6 GM/DL (12.0-16.0); Immature Granulocytes % 0.6 %; Immature Granulocytes Absolute 0.04 #; Lymphocytes # 2.1 10*3/uL (1.4-4.0); Lymphocytes % 28.9 % (21.3-54.2); Mean Corpuscular HGB Conc 31.8 GM/DL (32-36); Mean Corpuscular Volume 87.1 FL (87-102); Mean Platelet Volume 11.9 FL (9.6-12.0); Monocytes % 7.7 % (1.7-12.7); Neutrophils % 54.4 % (38.7-73.9); Platelet Count 243 T/CUMM (130-400); Red Blood Count 4.19 MC/CUMM (3.8-5.5); Red Cell Distribution Width 13.8 % (9.3-17.3); White Blood Count 7.2 T/CUMM (4-12)
[2019-06-26 19:43] LABS: PT Patient Result 10.5 SECS (9.6-12.2); Partial Thromboplastin Time 26.8 SECS (20.8-36.0)
[2019-06-26 19:55] LABS: Alanine Aminotransferase 24 U/L (13-56); Albumin 3.3 G/DL (3.4-5.0); Alkaline Phosphatase 112 U/L (45-117); Aspartate Amino Transferase 25 U/L (0-37); Bilirubin,Total < 0.39 MG/DL (0.2-1.0); Blood Urea Nitrogen 23 MG/DL (7-18); Calcium 8.6 MG/DL (8.5-10.1); Estimated Glom Filtration Rate 55 ML/MIN; Glucose 201 MG/DL (74-106); Osmolality,Calculated 279.1 MOS/KG (273-304); Total Protein 7.5 G/DL (6.4-8.3)
[2019-06-26] MEDS ORDERED: ALBUTEROL/IPRATROPIUM 3 ML NEB RESP TX STA (20:25)
[2019-06-26] MEDS ORDERED: methylPREDNISolone SOD SUC 125 MG/2 ML VIAL IV STA (20:25)
[2019-06-26] MEDS ORDERED: SODIUM CHLORIDE 0.9% 1,000 ML IV STA (20:27)
[2019-06-26] MEDS ORDERED: FUROSEMIDE 40 MG/4 ML VIAL IV STA (20:50)
[2019-06-26] MEDS ORDERED: GLUCAGON 1 MG VIAL IM PRN (22:52)
[2019-06-26] MEDS ORDERED: DEXTROSE 50% 25 GM/50 ML SYRINGE IV PRN (22:52)
[2019-06-26] MEDS ORDERED: ACETAMINOPHEN 325 MG TABLET PO PRN (22:52)
[2019-06-26] MEDS ORDERED: DEXTROSE 50% 25 GM/50 ML VIAL IV PRN (22:57)
[2019-06-26] MEDS ORDERED: DEXTROSE 10% 250 ML IV PRN (23:21)
[2019-06-26] MEDS ORDERED: FUROSEMIDE 100 MG/10 ML VIAL ONE (23:46)
[2019-06-27] MEDS ORDERED: NITROGLYCERIN SL 0.4 MG TABLET SL PRN (00:10)
[2019-06-27] MEDS ORDERED: BEPOTASTINE BESILATE BOTH EYES SCH (00:10)
[2019-06-27] MEDS ORDERED: LORazepam 1 MG TABLET PO PRN (00:10)
[2019-06-27] MEDS ORDERED: tiZANidine 4 MG TABLET PO PRN (00:10)
[2019-06-27] MEDS ORDERED: METOPROLOL SUCCINATE XL 50 MG TABLET PO SCH (01:00)
[2019-06-27] MEDS: ALBUTEROL/IPRATROPIUM 3 ML NEB RESP TX SCH ×5 (01:14→23:20)
[2019-06-27] MEDS: ENOXAPARIN 40 MG/0.4 ML SYRINGE SUBCUT SCH ×2 (01:28→23:33)
[2019-06-27] MEDS: cefTRIAXone 1,000 MG in SYRINGE 1 EACH IV SCH ×2 (01:28→23:34)
[2019-06-27] MEDS: AMITRIPTYLINE 25 MG TABLET PO SCH ×2 (01:33→20:24)
[2019-06-27] MEDS: SIMVASTATIN 10 MG TABLET PO SCH ×2 (01:34→20:24)
[2019-06-27 07:37] LABS: Basophils % 0.1 % (0.0-0.8); Hemoglobin 11.8 GM/DL (12.0-16.0); Immature Granulocytes % 0.4 %; Immature Granulocytes Absolute 0.03 #; Lymphocytes % 13.7 % (21.3-54.2); Mean Corpuscular HGB Conc 31.1 GM/DL (32-36); Mean Corpuscular Volume 86.4 FL (87-102); Mean Platelet Volume 13.7 FL (9.6-12.0); Monocytes % 0.8 % (1.7-12.7); Red Cell Distribution Width 13.8 % (9.3-17.3); White Blood Count 7.1 T/CUMM (4-12)
[2019-06-27 07:57] LABS: Platelet Count 131 T/CUMM (130-400)
[2019-06-27 07:58] LABS: Calcium 8.7 MG/DL (8.5-10.1); Osmolality,Calculated 278.5 MOS/KG (273-304)
[2019-06-27] MEDS ORDERED: predniSONE 20 MG TABLET PO SCH (08:00)
[2019-06-27] MEDS: INSULIN REGULAR 100 UNIT/ML SUBCUT SCH ×4 (08:31→21:01)
[2019-06-27] MEDS: TORSEMIDE 20 MG TABLET PO SCH (08:32)
[2019-06-27] MEDS: FERROUS SULFATE 325 MG TABLET PO SCH (08:32)
[2019-06-27] MEDS: GABAPENTIN 400 MG CAPSULE PO SCH ×3 (08:33→20:24)
[2019-06-27] MEDS: DILTIAZEM 60 MG TABLET PO SCH (08:33)
[2019-06-27] MEDS: PANTOPRAZOLE 40 MG TABLET PO SCH (08:33)
[2019-06-27] MEDS: LOSARTAN 50 MG TABLET PO SCH (08:33)
[2019-06-27] MEDS: FLUTICASONE 50 MCG NASAL SPRAY 16 GM BOTTLE BOTH NARES SCH (08:34)
[2019-06-27] MEDS ORDERED: METOPROLOL SUCCINATE XL 100 MG TABLET PO SCH (09:00)
[2019-06-27] MEDS: methylPREDNISolone SOD SUC 40 MG/1 ML VIAL IV SCH ×2 (12:30→20:24)
[2019-06-27] MEDS: BENZONATATE 100 MG CAPSULE PO PRN (16:06)
[2019-06-27] MEDS: BUDESONIDE 0.5 MG/2 ML NEB RESP TX SCH (20:10)
[2019-06-27] MEDS: ARFORMOTEROL 15 MCG/2 ML NEB RESP TX SCH (20:10)
[2019-06-27] MEDS: MONTELUKAST 10 MG TABLET PO SCH (20:24)
[2019-06-28] MEDS: ALBUTEROL/IPRATROPIUM 3 ML NEB RESP TX SCH ×5 (03:10→19:23)
[2019-06-28] MEDS: methylPREDNISolone SOD SUC 40 MG/1 ML VIAL IV SCH ×3 (05:16→21:52)
[2019-06-28] MEDS: BUDESONIDE 0.5 MG/2 ML NEB RESP TX SCH ×2 (07:05→19:23)
[2019-06-28] MEDS: ARFORMOTEROL 15 MCG/2 ML NEB RESP TX SCH ×2 (07:05→19:23)
[2019-06-28] MEDS: DILTIAZEM 60 MG TABLET PO SCH (09:15)
[2019-06-28] MEDS: NEBIVOLOL 5 MG TABLET PO SCH (09:16)
[2019-06-28] MEDS: FLUTICASONE 50 MCG NASAL SPRAY 16 GM BOTTLE BOTH NARES SCH (09:16)
[2019-06-28] MEDS: THEOPHYLLINE ER (24 HR) 400 MG TABLET PO SCH (09:16)
[2019-06-28] MEDS: MONTELUKAST 10 MG TABLET PO SCH ×2 (09:16→21:54)
[2019-06-28] MEDS: TORSEMIDE 20 MG TABLET PO SCH ×2 (09:16→09:17)
[2019-06-28] MEDS: FERROUS SULFATE 325 MG TABLET PO SCH (09:16)
[2019-06-28] MEDS: GABAPENTIN 400 MG CAPSULE PO SCH ×3 (09:16→22:01)
[2019-06-28] MEDS: PANTOPRAZOLE 40 MG TABLET PO SCH (09:17)
[2019-06-28] MEDS: LOSARTAN 50 MG TABLET PO SCH (09:17)
[2019-06-28] MEDS: INSULIN REGULAR 100 UNIT/ML SUBCUT SCH ×4 (10:22→21:58)
[2019-06-28] MEDS: BENZONATATE 100 MG CAPSULE PO PRN (11:29)
[2019-06-28 12:57] LABS: Hematocrit 37.1 VOL% (35.7-47.0); Immature Granulocytes % 0.8 %; Immature Granulocytes Absolute 0.09 #; Lymphocytes # 0.9 10*3/uL (1.4-4.0); Lymphocytes % 8.5 % (21.3-54.2); Mean Corpuscular HGB Conc 32.3 GM/DL (32-36); Mean Corpuscular Volume 85.3 FL (87-102); Mean Platelet Volume 12.2 FL (9.6-12.0); Monocytes % 2.6 % (1.7-12.7); Neutrophils % 88.1 % (38.7-73.9); Platelet Count 267 T/CUMM (130-400); Red Blood Count 4.35 MC/CUMM (3.8-5.5); Red Cell Distribution Width 14.1 % (9.3-17.3); White Blood Count 10.8 T/CUMM (4-12)
[2019-06-28 13:12] LABS: Calcium 8.5 MG/DL (8.5-10.1); Osmolality,Calculated 287.8 MOS/KG (273-304)
[2019-06-28] MEDS ORDERED: LEVOFLOXACIN INJ 750 MG in PREMIX 1 EACH IV SCH (20:00)
[2019-06-28] MEDS: AMITRIPTYLINE 25 MG TABLET PO SCH (21:54)
[2019-06-28] MEDS: SIMVASTATIN 10 MG TABLET PO SCH (21:54)
[2019-06-28] MEDS: INSULIN GLARGINE 100 UNIT/ML SUBCUT SCH (21:56)
[2019-06-28] MEDS: ENOXAPARIN 40 MG/0.4 ML SYRINGE SUBCUT SCH (22:35)
[2019-06-29] MEDS: ALBUTEROL/IPRATROPIUM 3 ML NEB RESP TX SCH ×7 (00:20→23:48)
[2019-06-29] MEDS: methylPREDNISolone SOD SUC 40 MG/1 ML VIAL IV SCH ×3 (03:41→22:37)
[2019-06-29 05:03] LABS: Basophils % 0.1 % (0.0-0.8); Hematocrit 33.1 VOL% (35.7-47.0); Hemoglobin 10.7 GM/DL (12.0-16.0); Immature Granulocytes % 0.8 %; Immature Granulocytes Absolute 0.09 #; Lymphocytes # 1.2 10*3/uL (1.4-4.0); Lymphocytes % 10.5 % (21.3-54.2); Mean Corpuscular HGB Conc 32.3 GM/DL (32-36); Mean Corpuscular Volume 84.9 FL (87-102); Mean Platelet Volume 12.7 FL (9.6-12.0); Monocytes % 3.2 % (1.7-12.7); Neutrophils % 85.4 % (38.7-73.9); Platelet Count 210 T/CUMM (130-400); Red Cell Distribution Width 14.3 % (9.3-17.3); White Blood Count 11.7 T/CUMM (4-12)
[2019-06-29 05:30] LABS: Calcium 8.5 MG/DL (8.5-10.1); Osmolality,Calculated 287.7 MOS/KG (273-304)
[2019-06-29] MEDS: ARFORMOTEROL 15 MCG/2 ML NEB RESP TX SCH ×2 (07:27→19:40)
[2019-06-29] MEDS: BUDESONIDE 0.5 MG/2 ML NEB RESP TX SCH ×2 (07:27→19:40)
[2019-06-29] MEDS: FERROUS SULFATE 325 MG TABLET PO SCH (09:14)
[2019-06-29] MEDS: MONTELUKAST 10 MG TABLET PO SCH ×2 (09:14→22:37)
[2019-06-29] MEDS: TORSEMIDE 20 MG TABLET PO SCH (09:14)
[2019-06-29] MEDS: PANTOPRAZOLE 40 MG TABLET PO SCH (09:14)
[2019-06-29] MEDS: DILTIAZEM 60 MG TABLET PO SCH (09:15)
[2019-06-29] MEDS: NEBIVOLOL 5 MG TABLET PO SCH (09:16)
[2019-06-29] MEDS: GABAPENTIN 400 MG CAPSULE PO SCH ×3 (09:16→22:37)
[2019-06-29] MEDS: INSULIN REGULAR 100 UNIT/ML SUBCUT SCH ×4 (09:17→23:01)
[2019-06-29] MEDS: sitaGLIPtin 100 MG TABLET PO SCH (09:17)
[2019-06-29] MEDS: LOSARTAN 50 MG TABLET PO SCH (09:17)
[2019-06-29] MEDS: THEOPHYLLINE ER (24 HR) 400 MG TABLET PO SCH (09:17)
[2019-06-29] MEDS: FLUTICASONE 50 MCG NASAL SPRAY 16 GM BOTTLE BOTH NARES SCH (09:30)
[2019-06-29] MEDS: AMITRIPTYLINE 25 MG TABLET PO SCH (22:36)
[2019-06-29] MEDS: ENOXAPARIN 40 MG/0.4 ML SYRINGE SUBCUT SCH (22:36)
[2019-06-29] MEDS: SIMVASTATIN 10 MG TABLET PO SCH (23:00)
[2019-06-29] MEDS: INSULIN GLARGINE 100 UNIT/ML SUBCUT SCH (23:00)
[2019-06-30] MEDS: ALBUTEROL/IPRATROPIUM 3 ML NEB RESP TX SCH ×3 (03:28→10:50)
[2019-06-30 05:33] LABS: Basophils % 0.1 % (0.0-0.8); Hematocrit 33.2 VOL% (35.7-47.0); Hemoglobin 10.7 GM/DL (12.0-16.0); Immature Granulocytes % 0.9 %; Lymphocytes # 1.3 10*3/uL (1.4-4.0); Lymphocytes % 11.1 % (21.3-54.2); Mean Corpuscular HGB Conc 32.2 GM/DL (32-36); Mean Corpuscular Volume 84.5 FL (87-102); Mean Platelet Volume 12.7 FL (9.6-12.0); Neutrophils % 83.9 % (38.7-73.9); Platelet Count 226 T/CUMM (130-400); Red Blood Count 3.93 MC/CUMM (3.8-5.5); Red Cell Distribution Width 14.2 % (9.3-17.3); White Blood Count 11.6 T/CUMM (4-12)
[2019-06-30 05:46] LABS: Calcium 8.4 MG/DL (8.5-10.1); Osmolality,Calculated 284.9 MOS/KG (273-304)
[2019-06-30] MEDS: BUDESONIDE 0.5 MG/2 ML NEB RESP TX SCH (07:50)
[2019-06-30] MEDS: ARFORMOTEROL 15 MCG/2 ML NEB RESP TX SCH (07:50)
[2019-06-30] MEDS: DILTIAZEM 60 MG TABLET PO SCH (08:58)
[2019-06-30] MEDS: LOSARTAN 50 MG TABLET PO SCH (08:59)
[2019-06-30] MEDS: TORSEMIDE 20 MG TABLET PO SCH (09:00)
[2019-06-30] MEDS: sitaGLIPtin 100 MG TABLET PO SCH (09:00)
[2019-06-30] MEDS: PANTOPRAZOLE 40 MG TABLET PO SCH (09:00)
[2019-06-30] MEDS: NEBIVOLOL 5 MG TABLET PO SCH (09:00)
[2019-06-30] MEDS: MONTELUKAST 10 MG TABLET PO SCH (09:00)
[2019-06-30] MEDS: THEOPHYLLINE ER (24 HR) 400 MG TABLET PO SCH (09:00)
[2019-06-30] MEDS: FERROUS SULFATE 325 MG TABLET PO SCH (09:01)
[2019-06-30] MEDS: GABAPENTIN 400 MG CAPSULE PO SCH ×2 (09:03→15:46)
[2019-06-30] MEDS: FLUTICASONE 50 MCG NASAL SPRAY 16 GM BOTTLE BOTH NARES SCH (09:04)
[2019-06-30] MEDS: INSULIN REGULAR 100 UNIT/ML SUBCUT SCH ×3 (09:04→16:52)
[2019-06-30] MEDS: methylPREDNISolone SOD SUC 40 MG/1 ML VIAL IV SCH (09:09)
[2019-06-30] MEDS ORDERED: SODIUM CHLORIDE 0.9% 1,000 ML IV SCH (12:00)
[2019-06-30 16:37] VITALS: BP 105/62
[2019-07-03] MEDS ORDERED: ERGOCALCIFEROL 50,000 UNIT CAPSULE PO SCH (09:00)
== END 2019-06-30 17:35 | disposition home or self-care (01) | DRG 191 ==
LOC: N.EDINP 19:04 → N.ED 19:04 → N.4E 06-27 00:01
PROVIDERS: ADMIT Hospitalist; ATTEND Hospitalist